=== PATIENT | female | born 1940 | race African-American/Black ===

== ENCOUNTER 2021-05-27 15:51 | Inpatient (IN) | payer BC, MEDICARE, OTHER ==
[~2021-05-27] VITALS: Ht 149.9 cm; Wt 67.0 kg
[2021-05-27 16:27] LABS: Hematocrit 37.8 % (36.0-46.0); Hemoglobin 13.1 g/dL (12.2-16.2); Mean Corpuscular Hemoglobin 30.9 pg (28.0-32.0); Mean Corpuscular Hgb Conc. 34.6 g/dL (32.0-36.0); Mean Corpuscular Volume 89.4 fL (80.0-100.0); Red Blood Cells 4.23 10^6/uL (4.0-5.20); Red Cell Distribution Width 15.6 % (11.8-14.3); White Blood Cell 9.2 10^3/uL (4.4-10.8)
[2021-05-27 16:33] LABS: Band Neutrophils % (manual) 0; Basophils % (manual) 0 (0.0-2.0); Blast Cells 0; Metamyelocytes % 0; Myelocytes % 0; Promyelocytes % 0; Reactive Lymphocytes 0
[2021-05-27] MEDS: DOPamine 1600MCG/ML D5W 250 ML IV SCH (16:37)
[2021-05-27 16:56] LABS: Eosinophils % (manual) 2 (0-7); Lymphocytes % (manual) 19 (10.0-50.0); Monocytes % (manual) 13 (0-12)
[2021-05-27 17:06] LABS: Alkaline Phosphatase 155 U/L (45-117); Anion Gap 8 (5-15); BUN/Creatinine Ratio 7.2; Blood Urea Nitrogen 10 mg/dL (7-18); Carbon Dioxide 21 mmol/L (21-32); Chloride 113 mmol/L (98-107); GFR African American 47 mL/min; GFR Non-African American 39 mL/min; Glucose 95 mg/dL (74-106); Sodium 142 mmol/L (136-145)
[2021-05-27 17:07] LABS: Alanine Aminotransferase 37 U/L (13-56); Albumin 3.5 g/dL (3.4-5.0); Aspartate Aminotransferase 26 U/L (15-37); Bilirubin, Total 1.2 mg/dL (0.2-1.0); Calcium 8.7 mg/dL (8.5-10.1); Magnesium 1.9 mg/dL (1.6-2.6); Total Protein 7.8 g/dL (6.4-8.2)
[2021-05-28] VITALS (7 sets, daily range): BP systolic 131–170; BP diastolic 57–77
[2021-05-28] MEDS ORDERED: ONDANSETRON HCL 4 MG/2 ML VIAL IV PRN (02:00)
[2021-05-28] MEDS ORDERED: ACETAMINOPHEN 325 MG TAB PO PRN (02:00)
[2021-05-28] MEDS ORDERED: hydrALAZINE HCL 20 MG/ML VL IV PRN (02:00)
[2021-05-28] MEDS ORDERED: HYDROcodone-ACET 5/325MG TAB PO PRN (02:00)
[2021-05-28] MEDS ORDERED: MORPHINE SULF INJ 2 MG/ML SYRINGE 1ML IV PRN (02:00)
[2021-05-28] MEDS ORDERED: DOCUSATE SOD 100 MG CAP PO PRN (02:00)
[2021-05-28] MEDS ORDERED: NITROGLYCERIN 0.4 MG SL TAB SL PRN (02:00)
[2021-05-28] MEDS ORDERED: APIX5TAB PO (06:14)
[2021-05-28] MEDS ORDERED: ONDA-144 PO (06:14)
[2021-05-28] MEDS ORDERED: METO25TA5 PO (06:14)
[2021-05-28] MEDS ORDERED: AMIO200T33 PO (06:14)
[2021-05-28] MEDS ORDERED: AMLO-489 PO (06:14)
[2021-05-28] MEDS ORDERED: ATOR80TA PO (06:14)
[2021-05-28] MEDS: SODIUM CHLOR 0.9% PF (SALINE LOCK) 10ML VIAL/SYR IV SCH ×3 (06:59→22:00)
[2021-05-28] MEDS: DOPamine 1600MCG/ML D5W 250 ML IV SCH (09:48)
[2021-05-28] MEDS: MULTIPLE VITAMIN TAB PO SCH (10:00)
[2021-05-28] MEDS ORDERED: HEPARIN SODIUM (PORCINE) 5000 UNITS/ML 1ML VIAL SC SCH (10:00)
[2021-05-28] MEDS ORDERED: HEPARIN SODIUM (PORCINE) 5000 UNITS/ML 1ML VIAL ONE (10:12)
[2021-05-28] MEDS: FAMOTIDINE 20 MG TAB PO SCH (10:30)
[2021-05-28] MEDS: ASCORBIC ACID 500 MG TAB PO SCH ×2 (10:31→22:31)
[2021-05-28] MEDS: ZINC SULFATE 220mg CAP or TAB PO SCH (10:32)
[2021-05-28] MEDS: APIXABAN 5 MG TAB PO SCH ×2 (13:27→22:30)
[2021-05-28] MEDS: ATORVASTATIN 20 MG TAB PO SCH (22:30)
[2021-05-28] MEDS: AMIODARONE HCL 200 MG TAB PO SCH (22:30)
[2021-05-29] VITALS (7 sets, daily range): BP systolic 114–137; BP diastolic 45–71
[2021-05-29 03:18] LABS: Urine Bacteria FEW /hpf (None Seen); Urine Blood Negative /uL (Negative); Urine Specific Gravity 1.008 (1.001-1.035); Urine WBC 3 /hpf (0 - 5)
[2021-05-29 05:26] LABS: Basophils # (auto) 0.1 10 ^3/uL (0-0.2); Basophils % (auto) 1.1 % (0.0-2.0); Eosinophils # (auto) 0.2 10 ^3/uL (0-0.8); Hematocrit 40.8 % (36.0-46.0); Hemoglobin 13.7 g/dL (12.2-16.2); Lymphocytes # (auto) 2.2 10 ^3/uL (0.4-5.4); Lymphocytes % (auto) 27.6 % (10.0-50.0); Mean Corpuscular Hgb Conc. 33.6 g/dL (32.0-36.0); Mean Corpuscular Volume 89.2 fL (80.0-100.0); Monocytes # (auto) 0.7 10 ^3/uL (0-1.3); Monocytes % (auto) 8.6 % (0.0-12.0); Neutrophils # (auto) 4.7 10 ^3/uL (1.6-8.6); Neutrophils % (auto) 59.7 % (37.0-80.0); Nucleated Red Blood Cells % 0.1 %; Red Blood Cells 4.57 10^6/uL (4.0-5.20); Red Cell Distribution Width 15.3 % (11.8-14.3); White Blood Cell 7.9 10^3/uL (4.4-10.8)
[2021-05-29 05:48] LABS: Potassium 3.4 mmol/L (3.5-5.1)
[2021-05-29 05:55] LABS: Albumin 3.3 g/dL (3.4-5.0); BUN/Creatinine Ratio 13.3; Calcium 8.8 mg/dL (8.5-10.1); Total Protein 6.8 g/dL (6.4-8.2)
[2021-05-29] MEDS: SODIUM CHLOR 0.9% PF (SALINE LOCK) 10ML VIAL/SYR IV SCH ×3 (06:00→21:29)
[2021-05-29] MEDS: AMIODARONE HCL 200 MG TAB PO SCH ×2 (10:10→21:32)
[2021-05-29] MEDS: DOPamine 1600MCG/ML D5W 250 ML IV SCH (10:10)
[2021-05-29] MEDS: ZINC SULFATE 220mg CAP or TAB PO SCH (10:10)
[2021-05-29] MEDS: FAMOTIDINE 20 MG TAB PO SCH (10:11)
[2021-05-29] MEDS: ASCORBIC ACID 500 MG TAB PO SCH ×2 (10:11→21:30)
[2021-05-29] MEDS: amLODIPine BESYLATE 5 MG TAB PO SCH (10:11)
[2021-05-29] MEDS: APIXABAN 5 MG TAB PO SCH ×2 (10:11→21:29)
[2021-05-29] MEDS: MULTIPLE VITAMIN TAB PO SCH (10:11)
[2021-05-29] MEDS: ATORVASTATIN 20 MG TAB PO SCH (21:30)
[2021-05-30 05:16] VITALS: BP 142/65
[2021-05-30] MEDS: SODIUM CHLOR 0.9% PF (SALINE LOCK) 10ML VIAL/SYR IV SCH ×3 (05:33→22:34)
[2021-05-30 08:00] VITALS: BP 137/54
[2021-05-30 09:28] VITALS: BP 143/70
[2021-05-30] MEDS: APIXABAN 5 MG TAB PO SCH ×2 (10:24→22:35)
[2021-05-30] MEDS: MULTIPLE VITAMIN TAB PO SCH (10:24)
[2021-05-30] MEDS: ZINC SULFATE 220mg CAP or TAB PO SCH (10:24)
[2021-05-30] MEDS: ASCORBIC ACID 500 MG TAB PO SCH ×2 (10:24→22:36)
[2021-05-30] MEDS: AMIODARONE HCL 200 MG TAB PO SCH ×2 (10:24→22:35)
[2021-05-30] MEDS: FAMOTIDINE 20 MG TAB PO SCH (10:25)
[2021-05-30] MEDS: amLODIPine BESYLATE 5 MG TAB PO SCH (10:25)
[2021-05-30 13:00] VITALS: BP 130/58
[2021-05-30 22:00] VITALS: BP 147/67
[2021-05-30] MEDS: ATORVASTATIN 20 MG TAB PO SCH (22:35)
[2021-05-31 05:00] VITALS: BP 149/72
[2021-05-31] MEDS: SODIUM CHLOR 0.9% PF (SALINE LOCK) 10ML VIAL/SYR IV SCH ×3 (05:08→22:00)
[2021-05-31 09:00] VITALS: BP 130/58
[2021-05-31] MEDS: AMIODARONE HCL 200 MG TAB PO SCH ×2 (10:00→22:48)
[2021-05-31] MEDS: ZINC SULFATE 220mg CAP or TAB PO SCH (10:16)
[2021-05-31] MEDS: MULTIPLE VITAMIN TAB PO SCH (10:16)
[2021-05-31] MEDS: ASCORBIC ACID 500 MG TAB PO SCH ×2 (10:16→22:49)
[2021-05-31] MEDS: FAMOTIDINE 20 MG TAB PO SCH (10:17)
[2021-05-31] MEDS: APIXABAN 5 MG TAB PO SCH ×2 (10:17→22:48)
[2021-05-31] MEDS: amLODIPine BESYLATE 5 MG TAB PO SCH (10:27)
[2021-05-31] MEDS ORDERED: LIDOCAINE 2%HCL (LOCAL ANESTH.) INJ 20ML MDV ONE (10:36)
[2021-05-31] MEDS ORDERED: ANGIOMAX 250 MG VIAL IV ONE (11:32)
[2021-05-31] MEDS ORDERED: fentaNYL CITRATE 100 MCG/2 ML VL ONE (11:33)
[2021-05-31] MEDS ORDERED: MIDAZOLAM HCL 1MG/1ML-2 ML VIAL ONE (11:33)
[2021-05-31] MEDS ORDERED: SODIUM CHL 0.9% 0 ML ONE (11:33)
[2021-05-31 13:30] VITALS: BP 139/68
[2021-05-31 17:00] VITALS: BP 128/57
[2021-05-31 20:00] VITALS: BP 126/52
[2021-05-31 22:13] VITALS: BP 126/52
[2021-05-31] MEDS: ATORVASTATIN 20 MG TAB PO SCH (22:48)
[2021-06-01 05:14] VITALS: BP 128/52
[2021-06-01] MEDS: SODIUM CHLOR 0.9% PF (SALINE LOCK) 10ML VIAL/SYR IV SCH ×3 (06:14→21:43)
[2021-06-01 09:00] VITALS: BP 100/50
[2021-06-01] MEDS: APIXABAN 5 MG TAB PO SCH (10:00)
[2021-06-01] MEDS: ASCORBIC ACID 500 MG TAB PO SCH ×2 (10:00→21:43)
[2021-06-01] MEDS: amLODIPine BESYLATE 5 MG TAB PO SCH (10:00)
[2021-06-01] MEDS: MULTIPLE VITAMIN TAB PO SCH (10:00)
[2021-06-01] MEDS: ZINC SULFATE 220mg CAP or TAB PO SCH (10:00)
[2021-06-01] MEDS: AMIODARONE HCL 200 MG TAB PO SCH ×2 (10:30→21:42)
[2021-06-01 10:32] LABS: INR 1.13 (0.9-1.15); Partial Thromboplastin Time 29.2 sec (23.0-31.2)
[2021-06-01 13:00] VITALS: BP 122/55
[2021-06-01 17:00] VITALS: BP 149/82
[2021-06-01] MEDS: ATORVASTATIN 20 MG TAB PO SCH (21:43)
[2021-06-01 22:00] VITALS: BP 151/67
[2021-06-02 05:00] VITALS: BP 115/69
[2021-06-02] MEDS: SODIUM CHLOR 0.9% PF (SALINE LOCK) 10ML VIAL/SYR IV SCH ×3 (06:01→22:21)
[2021-06-02 07:00] LABS: Basophils # (auto) 0.1 10 ^3/uL (0-0.2); Basophils % (auto) 1.2 % (0.0-2.0); Eosinophils # (auto) 0.1 10 ^3/uL (0-0.8); Eosinophils % (auto) 1.7 % (0.0-7.0); Hematocrit 38.1 % (36.0-46.0); Hemoglobin 12.6 g/dL (12.2-16.2); Lymphocytes # (auto) 2.5 10 ^3/uL (0.4-5.4); Lymphocytes % (auto) 35.9 % (10.0-50.0); Mean Corpuscular Hemoglobin 30.1 pg (28.0-32.0); Mean Corpuscular Hgb Conc. 33.1 g/dL (32.0-36.0); Neutrophils # (auto) 3.3 10 ^3/uL (1.6-8.6); Neutrophils % (auto) 47.2 % (37.0-80.0); Nucleated Red Blood Cells % 0.1 %; Red Blood Cells 4.19 10^6/uL (4.0-5.20); Red Cell Distribution Width 15.5 % (11.8-14.3)
[2021-06-02 07:13] LABS: Albumin 2.9 g/dL (3.4-5.0); Calcium 8.6 mg/dL (8.5-10.1); Potassium 3.9 mmol/L (3.5-5.1)
[2021-06-02 07:18] LABS: BUN/Creatinine Ratio 9.6; Bilirubin, Total 1.3 mg/dL (0.2-1.0); Total Protein 6.3 g/dL (6.4-8.2)
[2021-06-02 08:45] VITALS: BP 147/66
[2021-06-02] MEDS ORDERED: VANCOMYCIN 1GM/250ML 250 ML IV ONE (11:32)
[2021-06-02] MEDS ORDERED: LIDOCAINE 2%HCL (LOCAL ANESTH.) INJ 20ML MDV ONE (11:51)
[2021-06-02] MEDS ORDERED: VANCOMYCIN HCL 1000 MG VL ONE (12:12)
[2021-06-02] MEDS ORDERED: MIDAZOLAM HCL 1MG/1ML-2 ML VIAL ONE (12:13)
[2021-06-02] MEDS ORDERED: fentaNYL CITRATE 100 MCG/2 ML VL ONE (12:13)
[2021-06-02 14:47] VITALS: BP 180/66
[2021-06-02] MEDS: ceFAZolin 1GM/50ML 50 ML IV SCH ×2 (15:13→22:21)
[2021-06-02] MEDS: MULTIPLE VITAMIN TAB PO SCH (15:13)
[2021-06-02] MEDS: ZINC SULFATE 220mg CAP or TAB PO SCH (15:13)
[2021-06-02] MEDS: amLODIPine BESYLATE 5 MG TAB PO SCH (15:13)
[2021-06-02] MEDS: ASCORBIC ACID 500 MG TAB PO SCH ×2 (15:14→22:23)
[2021-06-02] MEDS: AMIODARONE HCL 200 MG TAB PO SCH ×2 (15:14→22:22)
[2021-06-02 16:46] VITALS: BP 163/77
[2021-06-02] MEDS: APIXABAN 5 MG TAB PO SCH ×2 (22:00→23:05)
[2021-06-02] MEDS: ATORVASTATIN 20 MG TAB PO SCH (22:22)
[2021-06-02 22:28] VITALS: BP 155/67
[2021-06-03 04:55] VITALS: BP 150/65
[2021-06-03] MEDS: SODIUM CHLOR 0.9% PF (SALINE LOCK) 10ML VIAL/SYR IV SCH (05:42)
[2021-06-03 08:49] VITALS: BP 160/69
[2021-06-03 09:43] VITALS: BP 160/59
[2021-06-03] MEDS: MULTIPLE VITAMIN TAB PO SCH (10:00)
[2021-06-03] MEDS: AMIODARONE HCL 200 MG TAB PO SCH (10:00)
[2021-06-03] MEDS: amLODIPine BESYLATE 5 MG TAB PO SCH (10:00)
[2021-06-03] MEDS: ASCORBIC ACID 500 MG TAB PO SCH (10:00)
[2021-06-03] MEDS: ZINC SULFATE 220mg CAP or TAB PO SCH (10:00)
[2021-06-03] MEDS: APIXABAN 5 MG TAB PO SCH (10:00)
== END 2021-06-03 10:50 | disposition home or self-care (01) | DRG 242 ==
LOC: EDBD 15:51 → ER 15:51 → TELE-CENTR 05-28 01:49
PROVIDERS: ADMIT Nurse Practitioner Family; ATTEND Family Medicine
PROC: 4A023N8 Measurement of Cardiac Sampling and Pressure, Bilateral, Percutaneous Approach (ICD-10-PCS; principal; 2021-05-31)
PROC: B2111ZZ Fluoroscopy of Multiple Coronary Arteries using Low Osmolar Contrast (ICD-10-PCS; 2021-05-31)
PROC: B2151ZZ Fluoroscopy of Left Heart using Low Osmolar Contrast (ICD-10-PCS; 2021-05-31)
PROC: 0JH606Z Insertion of Pacemaker, Dual Chamber into Chest Subcutaneous Tissue and Fascia, Open Approach (ICD-10-PCS; 2021-06-02)
PROC: 02HK3JZ Insertion of Pacemaker Lead into Right Ventricle, Percutaneous Approach (ICD-10-PCS; 2021-06-02)
PROC: 02H63JZ Insertion of Pacemaker Lead into Right Atrium, Percutaneous Approach (ICD-10-PCS; 2021-06-02)
DX: I49.5 Sick sinus syndrome (principal); I50.31 Acute diastolic (congestive) heart failure; I48.20 Chronic atrial fibrillation, unspecified; D68.59 Other primary thrombophilia; N17.9 Acute kidney failure, unspecified; E87.6 Hypokalemia; I11.0 Hypertensive heart disease with heart failure; Z79.01 Long term (current) use of anticoagulants; Z20.822 Contact with and (suspected) exposure to COVID-19; E78.00 Pure hypercholesterolemia, unspecified; E78.5 Hyperlipidemia, unspecified; I27.20 Pulmonary hypertension, unspecified; Z79.899 Other long term (current) drug therapy; Z86.73 Personal history of transient ischemic attack (TIA), and cerebral infarction without residual deficits
CPT/HCPCS: 33208; 36415; 71045; 80053; 81001; 83735; 84484; 85007; 85025; 85027; 85049; 85610; 85730; 86850; 86900; 86901; 87426; 93005; 93306; 93460; 99152; 99153; C1751; C1785; G0378; J0690; J2250